=== PATIENT | female | born 1975 | race Caucasian/White ===

== ENCOUNTER 2022-03-19 23:31 | Emergency (ER) | payer OTHER, SELFPAY ==
[2022-03-19 23:35] VITALS: BP 152/69; PULSE 85; RESP 20; TEMP 36.3; O2SAT 95
--- NOTE | 2022-03-19 23:49 | ED_ITS ---
HPI - Extremity Problem General Chief complaint: Extremity Problem,Nontraumatic Stated complaint: right shoulder pain Time Seen by Provider: 03/19/22 23:37 History of Present Illness HPI Narrative: 47-year-old right handed transitioning female with MS presents to the emergency room for evaluation of right shoulder pain x1 week. Patient states she has been moving residences and painting her new apartment since November. Patient states that she uses a cane with her left arm so she has been lifting multiple heavy objects with her right. Patient states the pain is on the medial side of her biceps and lateral side of the scapula. No known injury or trauma. Has been taking Skelaxin with minimal relief of symptoms Related Data Allergies Allergy/AdvReac Type Severity Reaction Status Date / Time No Known Allergies Allergy Verified 03/19/22 23:40 Review of Systems Review of Systems: CONSTITUTIONAL: Denies fever, chills, or sweats. EYES: Denies visual changes, redness, or discharge. ENT: Denies rhinorrhea, congestion, sore throat, or otalgia. CARDIOVASCULAR: Denies chest pain, palpitations, or edema. RESPIRATORY: Denies cough or dyspnea. GASTROINTESTINAL: Denies abdominal pain, nausea, vomiting, or diarrhea. GENITOURINARY: Denies dysuria or hematuria. SKIN: Denies rash or itching. MUSCULOSKELETAL: Reports right shoulder NEUROLOGIC: Denies headache, numbness, dizziness, or weakness. PSYCHIATRIC: Denies anxiety or depression. Exam Narrative: GENERAL: Well-appearing, well-nourished, no physical limitations, and in no acute distress. HEAD: Normocephalic, atraumatic. EYES: Conjunctivae normal, PERRLA and EOMI. CHEST: Clear to auscultation. No respiratory distress. No wheezes rales or rhonchi. HEART: Regular rate and rhythm. No murmur heard. Normal peripheral pulses. EXTREMITIES: Right shoulder: Biceps tenderness, no bony abnormality. Positive [place] Naman test, positive Neer test full range of motion. Neurovascular is intact distally SKIN: Warm, dry, no rash. No noted wounds NEURO: No focal deficits. Alert and oriented x3. MAEW. CN's II-XI intact bilaterally, normal gait PSYCH: Cooperative. Normal mood and affect. Course Vital Signs Vital signs: Vital Signs Temperature 36.3 C L 03/19/22 23:35 Pulse Rate 85 03/19/22 23:35 Respiratory Rate 20 03/19/22 23:35 Blood Pressure 152/69 H 03/19/22 23:35 Pulse Oximetry 95 03/19/22 23:35 Oxygen Delivery Room Air 03/19/22 23:35 Temperature 36.3 C L 03/19/22 23:35 Pulse Rate 85 03/19/22 23:35 Respiratory Rate 20 03/19/22 23:35 Blood Pressure 152/69 H 03/19/22 23:35 Pulse Oximetry 95 03/19/22 23:35 Oxygen Delivery Room Air 03/19/22 23:35 Discharge Plan Discharge Clinical Impression: Impingement syndrome of shoulder region Patient Disposition: Home, Self-Care Condition: Stable Instructions: Antibiotic Form, Shoulder Impingement Syndrome (ED) Prescriptions: New prednisone 20 mg tablet 60 mg PO DAILY 5 Days Qty: 15 0RF methocarbamol 750 mg tablet 750 mg PO TID Qty: 30 0RF Follow-up/Referrals: PHYSICIAN,RN LONG TERM CARE [Primary Care Provider] - Luis Bustillos MD [Physician] - Time of Disposition: 00:01
[2022-03-20] MEDS: methocarbamoL 750 MG TABLET PO (00:19)
== END 2022-03-20 00:25 | disposition home or self-care (01) ==
LOC: ANHED 03-20 00:14
PROVIDERS: Emergency Provider Nurse Practitioner Family
DX: M75.41 Impingement syndrome of right shoulder (principal); G35 Multiple sclerosis
CPT/HCPCS: 96372; 99283; A9270; J1100

== ENCOUNTER 2022-09-02 14:46 | Emergency (ER) | payer OTHER, SELFPAY ==
--- NOTE | 2022-09-02 14:48 | ED.WOUNDLAC ---
HPI - Wound/Laceration General Chief Complaint: Wound/Laceration Stated Complaint: FINGER LACERATION Time Seen by Provider: 09/02/22 15:09 Source: patient and RN notes reviewed Mode of arrival: ambulatory Limitations: no limitations History of Present Illness HPI narrative: 47 year old female presents concern for laceration to the left 5th digit. She reports she was cutting food with a sharp knife when she noticed she was bleeding. Reports she put super glue on the area to try to get stop bleeding, but it did not stop bleeding. Her last tetanus was in 2011 Related Data Home Medications Medication Instructions Recorded Confirmed baclofen 10 mg tablet 10 mg PO DAILY 09/02/22 09/02/22 estradiol valerate 20 mg/mL 5 mg IM WEEKLY 09/02/22 09/02/22 intramuscular oil gabapentin 100 mg capsule 100 mg PO DAILY 09/02/22 09/02/22 spironolactone 25 mg tablet 25 mg PO DAILY 09/02/22 09/02/22 Allergies Allergy/AdvReac Type Severity Reaction Status Date / Time No Known Allergies Allergy Verified 09/02/22 15:07 Review of Systems Review of Systems: CONSTITUTIONAL: Denies malaise, chills, sweats, or fever. SKIN: Reports laceration to the fifth digit of the left hand MUSCULOSKELETAL: Denies muscle skeletal pain NEUROLOGIC: Denies numbness, weakness All systems reviewed & are unremarkable except as noted in HPI and below PMFSH Comments At time of signature, agree with nursing past medical, surgical, social and family history. There is no relevant family history pertinent to the presenting complaint Exam Narrative: GENERAL: Well-appearing, well-nourished, and in no acute distress. HEAD: Normocephalic, atraumatic. EYES: PERRLA, conjunctivae clear ENT: Mucous membranes moist. NECK: Supple. No lymphadenopathy CHEST: Clear to auscultation. No respiratory distress. HEART: Regular rate and rhythm. SKIN: Warm, dry. Very small v-shaped superficial laceration noted to the palmar aspect of the tip of the 5th digit of the left hand, small amount of bleeding continues NEURO: Alert and oriented x3. PSYCH: Normal mood and affect Course Course Emergency Course: Patient is aware of diagnosis, understands and agrees to treatment plan. Anticipatory guidance given. Patient agrees to follow-up as directed and is aware of reasons to seek care at the emergency department. Portions of this record may have been created with voice recognition software Level of Care: Express Care Visit Vital Signs Vital signs: Reviewed. Procedures Laceration Laceration 1: Date: 09/02/22 Time: 15:40 Site: hand Size (cm): 0.4 Description: irregular Depth: simple, single layer ====== Skin Level ====== Skin layer closed with: dermabond ====== Subcutaneous Layer ====== ====== Muscle Layer ====== ====== Tendon Layer ====== MDM - Wound/Laceration MDM Narrative Medical decision making narrative: Pressure applied until bleeding was controlled, Dermabond applied Exam findings show no acute concerns or changes; patient is non-toxic appearing and is in no distress. Patient is appropriate for outpatient treatment and follow-up. Differential Diagnosis Differential diagnosis: Likely laceration, abrasion and avulsion of skin Critical Care Time Critical Care Time Critical Care Time: No Discharge Plan Discharge Clinical Impression: Laceration Patient Disposition: Home, Self-Care Condition: Stable Instructions: Laceration (ED) Additional Instructions: Skin adhesive care: -adhesive works like a bandage; do not use antibiotic ointment as it can break down the adhesive -You can shower while the adhesive is on your skin, but do not take a bath or soak or scrub the area for 7-10 days. Dry your skin by patting it gently with a towel. -The adhesive will peel off on its own; usually by 5-10days. If after 10 days, you still have adhesive on you, you can use antibiotic ointment or pe
[2022-09-02 14:57] VITALS: BP 139/79; PULSE 93; RESP 16; TEMP 36.6; O2SAT 97
[2022-09-02] MEDS: TETANUS,DIPHTHERIA,AC PERTUSSIS ADULT (0.5 ML) BOOSTRIX IM (16:31)
== END 2022-09-02 16:07 | disposition home or self-care (01) ==
PROVIDERS: Emergency Provider Nurse Practitioner
DX: S61.217A Laceration without foreign body of left little finger without damage to nail, initial encounter (principal); W26.0XXA Contact with knife, initial encounter; Y93.G9 Activity, other involving cooking and grilling; Z23 Encounter for immunization
CPT/HCPCS: 12001; 90471; 90715; 99212; G0463